=== PATIENT | female | born 2000 | race Hispanic/Latino ===

== ENCOUNTER 2022-10-26 10:33 | Emergency (ER) | payer OTHER, MEDICAID ==
[~2022-10-26] VITALS: Ht 165.1 cm; Wt 86.2 kg
[2022-10-26 10:38] VITALS: BP 114/89
== END 2022-10-26 11:15 | disposition home or self-care (01) ==
LOC: EDH 10:33
DX: M54.9 Dorsalgia, unspecified (principal); M54.2 Cervicalgia; R51.9 Headache, unspecified; V89.2XXA Person injured in unspecified motor-vehicle accident, traffic, initial encounter; Y93.89 Activity, other specified; Y92.89 Other specified places as the place of occurrence of the external cause; Y99.8 Other external cause status
CPT/HCPCS: 99281